=== PATIENT | male | born 2000 | race Two or more races ===

== ENCOUNTER 2021-12-10 23:13 | Emergency (ER) | payer OTHER ==
[~2021-12-10] VITALS: Ht 162.6 cm; Wt 60.3 kg
[~2021-12-10 23:13] MED LIST: SINGULAIR4 MG PO
== END 2021-12-11 04:43 ==
LOC: ER 23:13
DX: B34.9 Viral infection, unspecified (principal); Z20.822 Contact with and (suspected) exposure to COVID-19